=== PATIENT | female | born 2000 | race Caucasian/White ===

== ENCOUNTER 2024-11-30 04:24 | Inpatient (IN) ==
[2024-11-30] MEDS ORDERED: LIDOCAINE 1% LOCAL 20 ML VIAL INFIL PRN (04:37)
[2024-11-30] MEDS ORDERED: OXYTOCIN 30 UNITS/NSS 30 UNITS/500 ML BAG IV PRN ×2 (04:37→15:05)
--- NOTE | 2024-11-30 04:39 | Labor Progress Brief Note ---
Date of Service November 30, 2024 Subjective Patient returns with c/o ongoing / worsening contractions, no LOF, no VB, good FM. Assessment & Plan (1) Normal labor: Plan: Admit, epidural, exp mgmt labor Physical Exam Genitourinary: Cervix previously 1cm, now 4/100/-2 with intact membranes FHT and [place] not yet established, pt checked immediately upon her arrival. Coding Level of Care Code None Diagnoses Normal labor O80; Z37.9
[2024-11-30] MEDS: LACTATED RINGER'S 1,000 ML IV PRN (05:15)
[2024-11-30 05:22] LABS: Hematocrit (blood only) 36.4 % (37.0-47.0); Hemoglobin 12.8 g/dl (12.0-16.0); Mean Corpuscular Hemoglobin 32.8 pg (25.0-34.0); Mean Corpuscular Hgb Conc 35.2 g/dL (32.0-36.0); Mean Corpuscular Volume 93.3 fL (80.0-100.0); Mean Platelet Volume 11.4 fL (9.4-12.4); Platelet Count 171 K/uL (130-400); RDW Coefficient of Variation 13.2 % (11.5-14.5); RDW Standard Deviation 44.8 fL (36.4-46.3); White Blood Count 14.85 K/ul (4.8-10.8)
[2024-11-30] MEDS ORDERED: diphenhydrAMINE 50 MG/ML VIAL IV PRN (05:50)
[2024-11-30] MEDS ORDERED: ePHEDrine sulfate 50 MG/ML AMP IV PRN (05:50)
[2024-11-30] MEDS ORDERED: LIDOCAINE 2% MPF LOCAL 5 ML VIAL EPI PRN (05:50)
[2024-11-30] MEDS ORDERED: NALOXONE HCL 1 MG in SODIUM CHLORIDE 0.9% 1,000 ML IV PRN (05:50)
[2024-11-30] MEDS ORDERED: SODIUM CHLORIDE 0.9% PF INJ 10 ML VIAL EPI PRN (05:50)
[2024-11-30] MEDS ORDERED: ROPIVACAINE 0.5% PF 5 MG/ML 20 ML VIAL EPI PRN (05:50)
[2024-11-30] MEDS ORDERED: fentaNYL citrate PF 100 MCG/2 ML VIAL EPI PRN (05:50)
[2024-11-30] MEDS ORDERED: BUPIVACAINE 0.25% PF 30 ML VIAL EPI PRN (05:50)
[2024-11-30] MEDS ORDERED: NALBUPHINE HCL INJ 10 MG/ML AMP IV PRN (05:50)
[2024-11-30] MEDS ORDERED: NALOXONE HCL 0.4 MG/1 ML VIAL/CARP IV PRN (05:50)
--- NOTE | 2024-11-30 05:51 | Anesthesiology Consultation ---
Date of Service November 30, 2024 Assessment & Plan (1) Encounter for pre-operative examination: Chart Review Chart Review: Patient NOT seen in Pre Admission Testing and Acceptable Risk for Labor Epidural Consults Requested none History Height/Weight Height: 5 ft 5 in Weight: 75.296 kg Allergies Allergy/AdvReac Type Severity Reaction Status Date / Time No Known Allergies Allergy Verified 11/28/24 19:37 Medications Home Medications Medication Instructions Recorded Confirmed Last Taken azelaic acid 1 applicator topical DAILY 04/28/24 11/30/24 11/30/24 04:40 clindamycin phosphate 1 applic topical DAILY 04/28/24 11/30/24 Unknown prenat.vits,cherise,xee-gqde-absqc 1 tab PO DAILY 04/28/24 11/30/24 11/29/24 breast pump #1 ea 09/30/24 11/26/24 Unknown Active Medications Generic Name Dose Route Start Last Admin Trade Name Freq PRN Reason Stop Dose Admin Lactated Ringer's 1,000 mls @ 125 mls/hr 11/30/24 04:37 11/30/24 05:15 Lr IV 12/02/24 04:36 999 mls/hr .Q8H PRN Administration L&D Protocol Protocol Past Family History Family History Mother Thyroid condition Other Colorectal cancer Endometriosis Uterine cancer Past Surgical History Surgical History S/P wisdom tooth extraction Social History Smoking Status: Never smoker Do You Dip or Chew Tobacco: No Hx Alcohol Use: No Hx Substance Use: No Physical Exam Vital Signs Last Vital Signs Temp 98.2 F 11/30/24 05:01 Pulse 104 H 11/30/24 05:48 Resp 18 11/30/24 05:01 BP 126/86 11/30/24 05:30 Pulse Ox 98 11/30/24 05:48 Testing Laboratory Results 11/30/24 05:04
[2024-11-30] MEDS: LIDOCAINE 2%/EPINEPHRINE 1:200,000 20 ML PF ONE (06:03)
[2024-11-30] MEDS: BUPIVACAINE 0.25% PF 30 ML VIAL ONE (06:03)
[2024-11-30] MEDS: fentANYL 2 MCG/ML BUPIVacaine 0.125%-NSS 100ML BAG ONE (06:04)
[2024-11-30] MEDS: fentaNYL citrate PF 100 MCG/2 ML VIAL ONE (06:04)
[2024-11-30] MEDS: fentaNYL citrate PF 100 MCG/2 ML VIAL EPI STA (06:06)
[2024-11-30] MEDS: LIDOCAINE 2%/EPINEPHRINE 1:200,000 20 ML PF EPI STA (06:06)
[2024-11-30] MEDS: SODIUM CHLORIDE 0.9% PF INJ 10 ML VIAL ONE (06:06)
[2024-11-30] MEDS: BUPIVACAINE 0.25% PF 30 ML VIAL EPI STA (06:06)
[2024-11-30] MEDS: ePHEDrine sulfate 50 MG/ML AMP ONE (06:06)
[2024-11-30] MEDS: SODIUM CHLORIDE 0.9% PF INJ 10 ML VIAL EPI STA (06:07)
[2024-11-30] MEDS: OXYTOCIN 30 UNITS/NSS 30 UNITS/500 ML BAG IV PRN (08:40)
[2024-11-30] MEDS: NURSING L&D Epidural Breakthrough Pain Update ONE (10:27)
[2024-11-30] MEDS: fentANYL 2 MCG/ML BUPIVacaine 0.125%-NSS 100ML BAG EPI PRN (10:34)
[2024-11-30] MEDS ORDERED: HYDROCORTISONE ACETATE 25 MG SUPP PR PRN (15:05)
[2024-11-30] MEDS ORDERED: bisacodyL 10 MG SUPP PR PRN (15:05)
[2024-11-30] MEDS ORDERED: ACETAMINOPHEN 325 MG TAB PO PRN (15:05)
--- NOTE | 2024-11-30 15:09 | Anesthesia Procedure Note ---
Date of Service November 30, 2024 Anesthesia Post Epidural Note Vital Signs Vital Signs: Temp Pulse Resp BP Pulse Ox 36.8 C 116 H 16 189/79 H 94 11/30/24 11:00 11/30/24 15:07 11/30/24 06:22 11/30/24 15:07 11/30/24 14:03 Pain Intensity Lower Abdomen: Pain Intensity: 0 Notes Mental Status: alert / awake / arousable and participated in evaluation Nausea / Vomiting: adequately controlled Pain: adequately controlled Airway Patency, RR, SpO2: stable & adequate BP & HR: stable & adequate Hydration State: stable & adequate Neuraxial Anesthesia: was administered and sensory block is resolving Anesthetic Complications: no major complications apparent Epidural: Removed without complications and With tip intact
--- NOTE | 2024-11-30 15:24 | Delivery Summary ---
Vaginal Delivery Summary Date of Service November 30, 2024 Vaginal Delivery Summary and 3rd Degree LAC Patient is a G1, P0 female who presents at 38-4/7 weeks in active labor. She received effective epidural analgesia and membranes were ruptured for clear fluid. She progressed to full dilation without Pitocin. There were moderate variables with pushing. She brought the head to and after the head delivered there was noted to be a tight nuchal cord which was cut and clamped prior to delivering the rest of the . The rest of the infant delivered easily and was placed on mother's abdomen for further tension and drying. After stimulation, he was then crying and moving all 4 limbs. After cord blood was obtained, the placenta was expressed intact with three-vessel cord. She is noted to have a complete third-degree laceration which was repaired with 2-0 Vicryl followed by 3-0 chromic to close the vaginal mucosa and perineum. Initially I thought there was a tiny fourth degree tear but realized that the rectum actually was intact. bleeding was controlled with dilute Pitocin and fundal massage. The QBL was 492 mls. [facility] Vaginal Delivery Charge Delivery Type Details: and 3rd Degree LAC
[2024-11-30] MEDS: DIPHTHER/TETAN/PERTUS Vaccine (Tdap, Adol/Adult) 0.5mL IM ONE (15:55)
[2024-11-30] MEDS: DOCUSATE SODIUM 100 MG CAP PO SCH (20:33)
[2024-11-30] MEDS: IBUPROFEN 600 MG TAB PO PRN (20:33)
[2024-11-30] MEDS: BENZOCAINE 20% SPRY 85 APPLN/85 GM CAN EXT PRN (20:34)
[2024-12-01 07:17] LABS: Hematocrit (blood only) 26.7 % (37.0-47.0); Hemoglobin 9.2 g/dl (12.0-16.0); Mean Corpuscular Hemoglobin 32.2 pg (25.0-34.0); Mean Corpuscular Hgb Conc 34.5 g/dL (32.0-36.0); Mean Corpuscular Volume 93.4 fL (80.0-100.0); Mean Platelet Volume 11.2 fL (9.4-12.4); Platelet Count 105 K/uL (130-400); RDW Coefficient of Variation 13.2 % (11.5-14.5); RDW Standard Deviation 45.5 fL (36.4-46.3); Red Blood Count 2.86 M/uL (4.20-5.40); White Blood Count 15.13 K/ul (4.8-10.8)
[2024-12-01] MEDS: PRENATAL VITAMIN 1 TAB PO SCH (08:17)
--- NOTE | 2024-12-01 08:23 | Obstetrical Progress Note ---
Date of Service December 01, 2024 Assessment & Plan (1) Encounter for care and examination after delivery: s/p 3rd degree laceration repair- otherwise satisfactory post recovery continue colace 100mg bid for next several weeks & start sitz baths at least daily after 24-48 hours of ice. continue current plan Subjective Ambulation: ambulating normally Voiding: no voiding problems Passing Gas:: Yes Diet Tolerance:: regular diet Lochia:: Moderate Feeding Type:: breast feeding some soreness on the perineum but not bothersome with ice application Review of Systems All systems reviewed & are unremarkable except as noted in HPI & below Physical Exam Constitutional WD/WN, vitals as above Psychiatric A+Ox3, euthymic affect Genitourinary OB Exam Abdomen: + fundal height Fundus: + firm and + relation to umbilicus (at U) Results & Data Vital Signs (Past 12 Hours) Vital Signs Temp Pulse Pulse Resp BP Pulse Ox O2 Del Method 12/01/24 07:14 97.9 F 81 18 100/72 99 Room Air 12/01/24 04:00 97.9 F 83 16 105/70 99 Room Air 12/01/24 00:00 97.5 F L 95 H 16 118/75 99 Room Air 11/30/24 20:34 98.1 F 103 H 16 120/78 Room Air
[2024-12-01 15:52] VITALS: RESP 16
[2024-12-01] MEDS: bisacodyL 5 MG TABEC PO SCH (20:08)
[2024-12-02 06:49] LABS: Hematocrit (blood only) 27.8 % (37.0-47.0); Hemoglobin 9.4 g/dl (12.0-16.0)
--- NOTE | 2024-12-02 08:33 | Obstetrical Progress Note ---
Date of Service December 02, 2024 Assessment & Plan (1) Encounter for care and examination after delivery: (2) Third degree perineal laceration: Plan Plan d/c . Instructions given. f/u in 6 weeks. Day #:: 2 Subjective Ambulation: ambulating normally Voiding: no voiding problems Passing Gas:: Yes Diet Tolerance:: regular diet Lochia:: Small Feeding Type:: breast feeding bottom feeling better. Physical Exam Constitutional WD/WN, vitals as above Respiratory normal respiratory effort, lungs clear to auscultation Cardiovascular RRR, no murmur, no edema Extremities: no calf tenderness and no edema Gastrointestinal (Abdomen) soft, nt, nd, ff/nt at u Psychiatric A+Ox3, euthymic affect Results & Data Vital Signs (Past 12 Hours) Vital Signs Temp Pulse Resp BP Pulse Ox O2 Del Method 12/01/24 23:00 36.6 C 81 16 93/57 L 99 Room Air
[2024-12-02 08:41] VITALS: BP 91/61; TEMP 97.5; O2SAT 98
[2024-12-02 08:58] VITALS: PULSE 81
== END 2024-12-02 11:17 | disposition home or self-care (01) | DRG 768 ==
LOC: OPB 04:24 → 4S1 04:27 → 4E2 18:58